=== PATIENT | female | born 1995 | race Caucasian/White ===

== ENCOUNTER → 2018-01-27 09:05 | Outpatient (CLI) | payer BC, SELFPAY ==
[2018-01-27 10:38] LABS: Basophils % 0.2 % (0.1-2.0); Eosinophils # 0.1 K/mm3 (0.0-0.4); Eosinophils % 0.8 % (0.1-12.0); Hematocrit 35.9 % (37.0-47.0); Hemoglobin 11.7 g/dL (12.2-16.2); Lymphocytes # 2.2 K/mm3 (0.7-4.5); Lymphocytes % 24.1 K/mm3 (10-50); Mean Corpuscular HGB Conc 32.4 g/dL (31.8-35.4); Mean Corpuscular Hemoglobin 29.6 pg (27.0-31.2); Mean Corpuscular Volume 91.1 fl (81-99); Mean Platelet Volume 7.2 fl (7.4-10.4); Monocytes # 0.4 K/mm3 (0.1-1.0); Monocytes % 4.2 % (1.7-9.3); Neutrophils # 6.6 K/mm3 (1.8-7.8); Neutrophils % 70.8 % (37.0-80.0); Platelet Count 282 K/mm3 (142-424); Red Blood Count 3.94 M/mm3 (4.20-5.40); Red Cell Distribution Width 12.9 % (11.5-17.5); White Blood Count 9.3 K/mm3 (4.8-10.8)
[2018-01-28 08:31] LABS: HIV Screen 4th Generation wRfx Non Reactive (Non Reactive)
[2018-01-29 06:03] LABS: Rapid Plasma Reagin Ab Titer Non Reactive (NonRea<1:1)
[2018-01-29 06:04] LABS: Hepatitis B Surface Antigen Negative (Negative); Hepatitis C Antibody 0.1 s/co ratio (0.0-0.9); Rubella Antibodies, IgG 2.82 index (Immune >0.99)
== END ==
PROVIDERS: Family Provider Family Medicine; PCP Psychiatry & Neurology Sleep Medicine; Visit Provider Nurse Practitioner Obstetrics & Gynecology
DX: Z34.90 Encounter for supervision of normal pregnancy, unspecified, unspecified trimester (principal); Z3A.11 11 weeks gestation of pregnancy
CPT/HCPCS: 36415; 85025; 86592; 86703; 86762; 86850; 87340; 87380; G0432

== ENCOUNTER → 2018-02-04 14:01 | Outpatient (CLI) | payer BC, SELFPAY ==
--- NOTE | 2018-02-04 14:06 | US_ITS ---
US OB transvaginal: INDICATION: ITS.REASON: US OB TV for DATES ORDERING PHYSICIAN: Terrell Main MD PATIENT AGE: 22 years TECHNIQUE: ultrasound transvaginal scanning. COMPARISON: No previous relevant studies. FINDINGS: Single viable intrauterine gestation. Cephalic position. Placenta: Posterior and fundal placenta grade 1. There is a normal amount of fluid. The cervix appears satisfactory. Closed and measuring 2.23 centimeters in length. Complete survey performed and was unremarkable on the submitted images as in PACS. No discrete anomalies identified on survey imaging by technologist. Active fetus. The crown-rump length measures 6.84 cm equaling 13 weeks 1 day Maternal adnexa: No significant findings. Measurements: Average ultrasound age 13 weeks 2 days. Gestational Age 12 weeks 5 days. Estimated due date by ultrasound age 108/10/2018. Estimated weight 69 gr +/- 10 grams grams. BPD = 2.16 cm equaling 13 weeks 4 days OFD = 2.68 cm HC = 7.65 centers equaling 13 weeks and 2 days AC = 6.38 cm equaling 13 weeks 1 day FL = 1.00 cm equaling 13 weeks 0 days Heart Rate = 141 bpm . IMPRESSION: Viable cephalic fetus, consider follow-up study in around 20 weeks for better anatomical evaluation
== END ==
PROVIDERS: Family Provider Family Medicine; PCP Psychiatry & Neurology Sleep Medicine; Visit Provider Nurse Practitioner Obstetrics & Gynecology
DX: O26.841 Uterine size-date discrepancy, first trimester (principal)
CPT/HCPCS: 76830

== ENCOUNTER → 2018-03-24 14:12 | Outpatient (CLI) | payer BC, SELFPAY ==
--- NOTE | 2018-03-24 14:20 | US_ITS ---
US OB /maternal detail: INDICATION: ITS.REASON: US OB Complete ORDERING PHYSICIAN: Terrell Main MD PATIENT AGE: 22 years TECHNIQUE: ultrasound transabdominal scanning. COMPARISON: No previous relevant studies. FINDINGS: Single viable intrauterine gestation. Breech position. Placenta: Posterior Lat Wrap placenta grade . There is average amount fluid. The cervix appears satisfactory. Closed and measuring 3 cm in length. Complete survey performed and was unremarkable on the submitted images as in PACS. No discrete anomalies identified on survey imaging by technologist. Active fetus. Three-vessel cord with satisfactory umbilical cord insertion. 4- chamber heart noted. Survey of brain & ventricles. Face and neck survey unremarkable. Diaphragm and chest views unremarkable. Abdomen: Both kidneys noted and unremarkable. Stomach noted and satisfactory. Spine: Survey of the spine satisfactory with no anomalies identified nor imaged. Both arms and legs noted. Amniotic Fluid: Adequate. Maternal adnexa: No significant findings. Measurements: Average ultrasound age 19w4d. Gestational Age 20w1d. Estimated due date by ultrasound age 0108/14/2018. Estimated weight 305 grams. BPD = 19w5d OFD = 19w5d HC = 19w0d AC = 20w1d FL = 19w3d Growth Percentile= 21% Heart Rate = 161 Cerebellum = 20w2d Humerus = 19w6d HC/AC is 1.08(1.09-1.26). CI is 80% (70-86%). FL/BPD is 66%. FL/AC is 20%. IMPRESSION: There is a single live fetus in breech presentation. No obvious anomalies. Average ultrasound age is 19 weeks 4 days. Please see above for detail
== END ==
PROVIDERS: Family Provider Family Medicine; PCP Psychiatry & Neurology Sleep Medicine; Visit Provider Nurse Practitioner Obstetrics & Gynecology
DX: Z36.0 Encounter for antenatal screening for chromosomal anomalies (principal)
CPT/HCPCS: 76811

== ENCOUNTER 2018-05-25 06:40 | Outpatient (CLI) | payer BC, SELFPAY ==
[2018-05-25 06:51] VITALS: BMI 29.4
[2018-05-25 07:13] LABS: Appearance,Urine SL CLOUDY (Clear); Bilirubin,Urine Negative (Negative); Blood, Urine Negative (Negative); Color,Urine YELLOW (Yellow); Glucose,Urine (UA) Negative (Negative); Ketones,Urine Negative (Negative); Leukocyte Esterase,Urine 2+ (Negative); Microscopic, Urine URINE MICROSCOPIC (MICROSCOPIC); Nitrate,Urine Negative (Negative); PH,Urine 6.5 (5.0-8.5); Protein,Urine Negative (Negative); Urobilinogen,Urine 0.2 EU/dl (0.2)
[2018-05-25 07:23] LABS: Amphetamine/Metha Screen,Urine Negative ng/mL (<1000); Barbiturates Screen,Urine Negative ng/mL (<200); Benzodiazepines Screen,Urine Negative ng/mL (<200); Cannabinoid Screen,Urine Negative ng/mL (<50); Cocaine Screen,Urine Negative ng/mL (<300); Methadone Screen,Urine Negative ng/mL (<300); Opiate Screen,Urine Negative ng/mL (<300); Phencyclidine Screen,Urine Negative ng/mL (<25)
[2018-05-25 07:30] VITALS: BP 100/54; PULSE 86; RESP 20; TEMP 36.6; O2SAT 100; BMI 29.4
[2018-05-25 07:33] LABS: Bacteria,Urine 2+ /lpf; RBC,Urine Occasional #/hpf (0-3); Squamous Epithelial Cell,Urine 20-50 #/hpf (0-5)
--- NOTE | 2018-05-25 09:26 | P.PN_ITS ---
Internal Medicine - PN: Subj *Date: 05/25/18 *Time: 09:25 Interval history: She is a 22-year-old 1 para 0 at 32 weeks gestational age. She complains of having lower back pain and irregular contractions. On arrival she was having irregular contractions and was quite uncomfortable. Her cervix was long and closed. Exam Vital signs and Labs for Last 24 Hours: Laboratory Results - last 24 hr 05/25/18 06:50: Urine Color Yellow, Urine Appearance Sl cloudy, Urine pH 6.5, Ur Specific [place] 1.020, Urine Protein Negative, Urine Glucose (UA) Negative, Urine Ketones Negative, Urine Blood Negative, Urine Nitrate Negative, Urine Bilirubin Negative, Urine Urobilinogen 0.2, Ur Leukocyte Esterase 2+ A, Urine RBC Occasional, Urine WBC 5-10, Ur Squamous Epith Cells 20-50, Urine Bacteria 2+ 05/25/18 06:50: Urine Opiates Screen Negative, Urine Methadone Screen Negative, Ur Barbituates Screen Negative, Ur Phencyclidine Scrn Negative, Ur Amphetamines Screen Negative, U Benzodiazepines Scrn Negative, Urine Cocaine Screen Negative, U Marijuana (THC) Screen Negative I & O for Last 24 hours: Intake & Output 05/22/18 05/23/18 05/24/18 05/25/18 12:59 12:59 11:59 11:59 Weight 177 lb - Constitutional no acute distress Assessment and Plan (1) False labor before 37 completed weeks of gestation Current visit: Yes Status: Acute Category: Medical Code(s): O47.00 - False labor before 37 completed weeks of gestation, unspecified trimester - Assessment and plan all Dx Assessment and Plan for all problems:: Gave her a bolus of fluid as well as 1 dose of Brethine. This stopped her contractions. She has received 1 dose of Celestone and will return tomorrow for her second dose of Celestone. She will return if she has any further episodes of contractions. Her cervix has remained long and closed. Nonstress test is reactive.
== END 2018-05-25 09:30 | disposition home or self-care (01) ==
LOC: OBOUT 06:43 → OB 06:45
PROVIDERS: PCP Family Medicine; Referring Provider Nurse Practitioner Obstetrics & Gynecology; Visit Provider Nurse Practitioner Obstetrics & Gynecology
DX: O26.893 Other specified pregnancy related conditions, third trimester (principal); Z3A.29 29 weeks gestation of pregnancy; M54.5 Low back pain; R10.9 Unspecified abdominal pain
CPT/HCPCS: 59025; 80305; 81001; 87086; 96360; 96372

== ENCOUNTER 2018-05-26 08:03 | Outpatient (CLI) | payer BC, SELFPAY ==
[2018-05-26 08:13] VITALS: BP 118/54; PULSE 72; RESP 16; TEMP 36.5; O2SAT 98; BMI 29.2
== END 2018-05-26 08:30 | disposition home or self-care (01) ==
LOC: OBOUT 08:04 → OB 08:06
PROVIDERS: PCP Nurse Practitioner Obstetrics & Gynecology; Visit Provider Nurse Practitioner Obstetrics & Gynecology
DX: O26.893 Other specified pregnancy related conditions, third trimester (principal); Z3A.29 29 weeks gestation of pregnancy; M54.5 Low back pain; R10.9 Unspecified abdominal pain
CPT/HCPCS: 96372

== ENCOUNTER → 2018-07-08 21:46 | Outpatient (CLI) | payer BC, SELFPAY | PROVIDERS: Visit Provider Nurse Practitioner Obstetrics & Gynecology | DX: Z34.90 Encounter for supervision of normal pregnancy, unspecified, unspecified trimester (principal) | CPT/HCPCS: 86403 ==

== ENCOUNTER → 2018-07-16 13:00 | Outpatient (CLI) | payer BC, SELFPAY ==
--- NOTE | 2018-07-16 13:16 | US_ITS ---
US OB BPP w/Fet-Mat S/D: INDICATION: ITS.REASON: US OB BPP Growth- SGA ORDERING PHYSICIAN: Terrell Main MD PATIENT AGE: 22 years TECHNIQUE: ultrasound transabdominal scanning. COMPARISON: March 24, 2018 at which time fetus measured average ultrasound age 19 weeks 4 days FINDINGS: Single viable intrauterine gestation. Cephalic position Currently. Placenta: Placenta wraps on the left.. Modest but adequate amount... The cervix appears adequately. Closed, measuring 3.54 cm in length. Abbreviated survey performed and was unremarkable on the submitted images as in PACS. No discrete anomalies identified on survey imaging by technologist. Active fetus.Three-vessel cord with satisfactory umbilical cord insertion. Limited Survey of brain & ventricles. In posterior fossa unremarkable Limited Face and neck survey unremarkable. Nasion intact Diaphragm and chest views unremarkable.4- chamber heart imaged.. Abdomen: Both kidneys noted and unremarkable. Stomach noted and satisfactory. Limited Survey of the spine satisfactory with no anomalies identified nor imaged. Both arms and legs noted.Amniotic Fluid: Adequate. . Measurements: Average ultrasound age 35 weeks 4 days. Gestational Age 36 weeks 3 days based on LMP 11/03/2017. Estimated due date by ultrasound age 108/16/2018. Estimated weight 2774 grams. +/- 405g . growth Percentile 36%. BPD = 35 weeks 2 days OFD = 35 weeks 2 days HC = 34 weeks 6 days AC = 36 weeks 3 days FL = 35 weeks 3 days Heart Rate = 143 BPM RAQUEL = 11.57.. Visually there is modest but adequate fluid Largest pocket 3.5 cm at right upper quadrant SD ratio = 2.9 with resistive index 0.66 ] BIOPHYSICAL PROFILE: 6 of 8 points 2+ scoring for: Tone, Movement, Amniotic Fluid volume . However no Breathing was observed even with stimulation maneuvers thus this category scored as 0 HC/AC = 0.96.(0.93-1.11.) CI = 80%.(70-86%). FL/BPD is 79%. WNL (71-87%) FL/AC is 21%. WNL ====IMPRESSION: 35 weeks 4 days average ultrasound age Cephalic position. Placenta wraps to the left . Anatomical survey of unremarkable & WNL . RAQUEL 11.57; SD ratio 2.9. Biophysical profile 6 of 8 points . (No Breathing observed during the 30 minute period, thus this category scored as 0.)
== END ==
PROVIDERS: PCP Family Medicine; Visit Provider Nurse Practitioner Obstetrics & Gynecology
DX: O36.5930 Maternal care for other known or suspected poor fetal growth, third trimester, not applicable or unspecified (principal); Z3A.35 35 weeks gestation of pregnancy
CPT/HCPCS: 76811; 76819; 76820

== ENCOUNTER 2018-07-16 21:40 | Outpatient (CLI) | payer BC, SELFPAY ==
[2018-07-16 21:53] VITALS: BMI 28.0
[2018-07-16 22:25] LABS: Microscopic, Urine URINE MICROSCOPIC (MICROSCOPIC)
[2018-07-16 22:31] LABS: Appearance,Urine CLEAR (Clear); Blood, Urine Negative (Negative); Color,Urine YELLOW (Yellow); Glucose,Urine (UA) Negative (Negative); Ketones,Urine TRACE (Negative); Leukocyte Esterase,Urine Negative (Negative); Nitrate,Urine Negative (Negative); PH,Urine 6.5 (5.0-8.5); Protein,Urine TRACE (Negative)
[2018-07-16 22:39] LABS: Bilirubin,Urine Negative (Negative)
[2018-07-16 22:41] LABS: Fetal Membrane Rupture (Rapid) Negative (Negative)
[2018-07-16 22:48] LABS: Bacteria,Urine Trace /lpf
[2018-07-16 22:56] VITALS: BP 112/56; PULSE 68; RESP 18; TEMP 36.8; O2SAT 98; BMI 28.0
== END 2018-07-17 00:35 | disposition home or self-care (01) ==
LOC: OBOUT 21:42 → OB 21:43
PROVIDERS: PCP Family Medicine; Visit Provider Obstetrics & Gynecology
DX: O26.893 Other specified pregnancy related conditions, third trimester (principal); Z3A.36 36 weeks gestation of pregnancy
CPT/HCPCS: 59025; 81001; 84112; 96360

== ENCOUNTER → 2018-08-11 09:58 | Outpatient (CLI) | payer BC, OTHER, SELFPAY ==
--- NOTE | 2018-08-11 10:16 | US_ITS ---
US OB BPP w/Fet-Mat S/D: INDICATION: ITS.REASON: US OB- Post Dates ORDERING PHYSICIAN: Terrell Main MD PATIENT AGE: 22 years TECHNIQUE: ultrasound transabdominal scanning. COMPARISON: No previous relevant studies. FINDINGS: Single viable intrauterine gestation. Cephalic position. Placenta: Anterior left lateral and posterior placenta grade 2. There is average amount fluid. The cervix appears satisfactory. Closed and measuring 3 cm in length. Measurements: Average ultrasound age 37w4d. Gestational Age 40w1d. Estimated due date by ultrasound age 0208/28/2018. Estimated weight 3275 grams. BPD = 38w0d OFD = 38w5d HC = 37w1d AC = 38w2d FL = 36w5d Growth Percentile= not calculated due to post dates Heart Rate = 126 HC/AC is 0.95 (0.87-1.06). CI is 82%. FL/BPD is 77%. FL/AC is 21% (20-24%).. Umbilical artery evaluation shows an SD ratio of 2.9 and a resistive index of 0.65 both within normal limits. Biophysical profile is 8 of 8 Amniotic fluid index is 7 cm, slightly low IMPRESSION: There is a live IUP with an average ultrasound age of 37 weeks and 4 days with an estimated weight of 3275 g. All parameters correlate. Unremarkable umbilical artery Doppler evaluation. The placenta is anterior left lateral and posterior and grade 2 Biophysical profile 8 of 8. Slightly low amniotic fluid index of 7 cm
== END ==
PROVIDERS: PCP Nurse Practitioner Obstetrics & Gynecology; Visit Provider Nurse Practitioner Obstetrics & Gynecology
DX: O48.0 Post-term pregnancy (principal)
CPT/HCPCS: 76811; 76819; 76820

== ENCOUNTER 2018-08-12 01:22 | Inpatient (IN) ==
[2018-08-12 05:53] LABS: Basophils % 0.2 % (0.1-2.0); Eosinophils % 0.4 % (0.1-12.0); Hematocrit 35.8 % (37.0-47.0); Lymphocytes # 2.3 K/mm3 (0.7-4.5); Lymphocytes % 22.1 % (10-50); Mean Corpuscular HGB Conc 33.5 g/dL (31.8-35.4); Mean Corpuscular Hemoglobin 30.4 pg (27.0-31.2); Mean Corpuscular Volume 90.6 fl (81-99); Mean Platelet Volume 7.5 fl (7.4-10.4); Monocytes # 0.4 K/mm3 (0.1-1.0); Monocytes % 4.1 % (1.7-9.3); Neutrophils # 7.6 K/mm3 (1.8-7.8); Neutrophils % 73.2 % (37.0-80.0); Platelet Count 274 K/mm3 (142-424); Red Blood Count 3.95 M/mm3 (4.20-5.40); Red Cell Distribution Width 14.7 % (11.5-17.5); White Blood Count 10.4 K/mm3 (4.8-10.8)
--- NOTE | 2018-08-12 08:18 | History & Physical Report ---
OB - H&P: HPI Antepartum - History of Present Illness Chief complaint: Post date History of present illness: She is a 22-year-old 1 para 0 at 40 and 2 weeks gestational age. As a result of that we are electing to induce her labor postterm. - History of Present Criteria for establishing EDC:: LMP confirmed by 1st trimester US care: good care Ultrasounds: normal 1st trimester US, normal mid trimester US Obstetrical complications: none Medical complications: none [facility] History I have reviewed the patient's past medical history: Yes Medical History: Denies:: Anxiety, Asthma, Depression, Diabetes Mellitus Type 1, Hyperlipidemia, Hypertension, MRSA, Seizures Have you ever received a pneumonia vaccine?: No Have you received a flu vaccine this season?: No Other Surgeries: No: Amputation: No Fractures: No - *Social History Smoking Status: Never smoker Alcohol Intake: never Substance Use Type: denies use Occupational Status: other, unemployed - Psychiatric History Pschychiatric History:: Denies:: Anxiety, Depression *Family Hx:: No significant family history Para: 0 Review of Systems - Review of Systems Review of systems:: pertinent systems reviewed and negative unless documented below Meds Home Medications Medication Instructions Recorded Confirmed Type 1 tab PO QHS 01/27/18 08/11/18 History vitamin,calcium,oojjtriv-pghr-gcyhn acid tablet RX: Ferrous Sulfate [Ferosul 220 mg PO DAILY 07/16/18 08/11/18 History 220mg/5ml Elixir] Allergies Allergy/AdvReac Type Severity Reaction Status Date / Time No Known Allergies Allergy Verified 08/11/18 10:52 OB - H&P: Exam - Physical Exam Vital signs: Temp Pulse Resp BP Pulse Ox 98.3 F 105 H 16 129/77 93 L 08/12/18 05:54 08/12/18 05:54 08/12/18 05:54 08/12/18 05:54 08/12/18 05:54 - Constitutional no acute distress - Routine HEENT Exam Head: Present: normocephalic Eye: Present: EOMI, PERRL ENT: Present: mucous membranes moist - Routine Neck Exam Present: supple, full ROM - Routine Respiratory Exam Absent: accessory muscle use (good air entry bilaterally), respiratory distress, wheezes, crackles - Routine Cardiovascular Exam Present: RRR. Absent: murmur - Routine Abdominal Exam Present: soft, normoactive bowel sounds. Absent: tenderness, distended, guarding - Routine Rectal Exam Patient deferred: visual exam, digital exam - Routine Exam Patient deferred: external exam, groin exam, perineal exam - Routine Extremities Exam Present: full ROM. Absent: cyanosis, edema - Routine Skin Exam Present: intact. Absent: cyanosis - Routine Neurological Exam Present: alert, oriented X3 - Routine Psychiatric Exam Present: normal affect OB - Results - Labs Labs: Short CBC 08/12/18 Range/Units 05:45 WBC 10.4 (4.8-10.8) K/mm3 Hgb 12.0 L (12.2-16.2) g/dL Hct 35.8 L (37.0-47.0) % Plt Count 274 (142-424) K/mm3 OB - A/P Antepartum (1) Post term over 40 weeks Current visit: Yes Status: Acute (2) Normal delivery at term Current visit: Yes Status: Acute - Additional Plan Planning to breastfeed?: Yes Plan: induction Additional Information:: Her cervix is 2 cm 75% Station -2. We have ruptured her membranes. Her nonstress test is reactive. She is having contractions every 2 minutes. We will expect a vaginal delivery.
--- NOTE | 2018-08-12 10:31 | Progress Note ---
Labor Note - Subjective: Date: 08/12/18 Time: 10:30 regular contraction - Objective: NST:: Reactive Contractions:: every 2-3 minutes Cervical Dilation:: 2 Effacement:: 50% Station: -2 Membranes: artificially ruptured - Fetus: Monitoring?: Yes monitoring type:: External - Assessment: Labor progressing?: Yes Cephalopelvic disproportion?: No Patient Problems: All Active Problems False labor before 37 completed weeks of gestation (Acute) Post term over 40 weeks (Acute) Normal delivery at term (Acute) (Acute) - Plan: Anesthesia for epidural?: No Continue to labor down?: Yes Plan for ?: No Continue to monitor?: Yes Start pushing?: No
--- NOTE | 2018-08-12 13:50 | Progress Note ---
Labor Note - Subjective: Date: 08/12/18 Time: 13:49 regular contraction - Objective: NST:: Reactive Contractions:: every 2-3 minutes Cervical Dilation:: 3 Effacement:: 75% Station: -3 Membranes: ruptured - Fetus: Monitoring?: Yes monitoring type:: External - Assessment: Labor progressing?: Yes Patient Problems: All Active Problems False labor before 37 completed weeks of gestation (Acute) Post term over 40 weeks (Acute) Normal delivery at term (Acute) (Acute) - Plan: Anesthesia for epidural?: No Continue to labor down?: Yes Plan for ?: No Continue to monitor?: Yes Start pushing?: No Comment:: She has gone from 2-3 cm and her cervix has thinned out somewhat. The baby's head is still quite high. We will see how she does over the next few hours.
--- NOTE | 2018-08-12 17:05 | Progress Note ---
Labor Note - Subjective: Date: 08/12/18 Time: 17:04 regular contraction - Objective: NST:: Reactive Contractions:: every 2-3 minutes Cervical Dilation:: 2-3 Effacement:: 50% Station: -3 Membranes: artificially ruptured - Fetus: Monitoring?: Yes monitoring type:: External - Assessment: Labor progressing?: No Cephalopelvic disproportion?: Yes Patient Problems: All Active Problems False labor before 37 completed weeks of gestation (Acute) Post term over 40 weeks (Acute) Normal delivery at term (Acute) (Acute) - Plan: Anesthesia for epidural?: No Continue to labor down?: No Plan for ?: Yes Continue to monitor?: Yes Comment:: She really has not progressed beyond 2-3 cm. She does not have an epidural. Baby's head is still high. We will plan a .
--- NOTE | 2018-08-12 18:09 | Progress Note ---
Labor Note - Subjective: Date: 08/12/18 Time: 18:08 regular contraction - Objective: NST:: Reactive Contractions:: every 2-3 minutes Cervical Dilation:: 2-3 Effacement:: 50% Station: -3 Membranes: artificially ruptured - Fetus: Monitoring?: Yes monitoring type:: External - Assessment: Labor progressing?: No Cephalopelvic disproportion?: Yes Patient Problems: All Active Problems False labor before 37 completed weeks of gestation (Acute) Post term over 40 weeks (Acute) Normal delivery at term (Acute) (Acute) - Plan: Anesthesia for epidural?: No Continue to labor down?: No Plan for ?: Yes Continue to monitor?: Yes Start pushing?: No Comment:: She really has not progressed beyond 2-3 cm. The baby's head is still quite high. After having discussed the risks and benefits we have elected to go ahead with a primary lower segment transverse section. We discussed the risks of surgery that includes bleeding, infection, injury to the bowel and bladder. We discussed the risk of DVT. All questions were answered and consents were signed.
--- NOTE | 2018-08-12 20:28 | Operative Note ---
Date of procedure: 08/12/18 Pre-op Diagnosis:: Post term , pelvic disproportion Post-op Diagnosis:: Post term , pelvic disproportion, uterine atony Procedure performed:: Primary lower segment transverse section, B-Healy suture Surgeon:: Terrell Main MD Exercise Science Instructor(s):: Karen Rubio MOTOR LODGE CLERK:: Aftab Campbell Anesthesia: spinal Estimated blood loss (mL): 1,000 Clinical Note:: She is a 22-year-old 1 para 0 at 40+2 weeks gestational age. She was postterm and as result of that was brought in for induction of labor. She was on IV oxygen and had her membranes ruptured. She really failed to progress beyond 2 to centimeters after 12 hours of oxytocin. As result of that we elected to perform a primary ligament transverse section. The risks and benefits of surgery were discussed patient and her . Operative findings:: She delivered a liveborn female child at 7:54 PM in the evening of August 12, 2018. The baby Apgars of 9 at 1 minute and 10 at 5 minutes. PH is pending. Ovaries and tubes appeared normal. The uterus is quite boggy after we delivered the baby and placenta. As result of that we elected to place a B-Healy suture Operative note:: She was taken to the operating room where spinal anesthesia was found be adequate. She was prepped and draped in normal sterile fashion in the supine position with a leftward tilt. A Fernandes catheter was in the bladder. A Pfannenstiel skin incision was made with knife then carried through to the underlying layer of fascia with cautery. The fascia was opened in the midline with cautery and extended laterally using Sen scissors. Deerton clamps were appli ed to the superior aspect of the fascial incision which was tented up and the underlying rectus muscles dissected off using cautery. The Deerton clamps were then applied to the inferior aspect of the fascial incision which in a similar fashion was tented up and the underlying rectus muscles dissected off using cautery. The rectus muscles were then in the midline, the peritoneum identified, and entered sharply with Metzenbaum scissors. This incision was then extended superiorly and inferiorly with cautery. We had good visualization of the bladder inferiorly. The bladder peritoneum was then opened in the midline and extended laterally using Metzenbaum scissors. A bladder flap was created digitally. Transverse incision was made through the uterine muscle to the amnion. This incision was then extended laterally using fingers traction. The amnion was entered sharply with knife. There was clear amniotic fluid. The 's head was then delivered atraumatically. A loose nuchal cord was then reduced. This was followed by the anterior shoulder and the rest of the 's body atraumatically. The oropharynx and nasopharynx were bulb suctioned. The was then handed off to Dr. Mensah who assigned Apgars of 9 at 1 minute and 10 at 5 minutes. We then obtained cord blood as well as cord pH. Using gentle traction on the cord and countertraction on the fundus I was able to easily deliver the placenta intact. It had a normal three-vessel cord. The uterus was then cleared of clots and debris . The uterine incision was then closed using running 0 Vicryl suture in a locked fashion. A second layer of the same suture was used to imbricate the first layer. The bladder peritoneum was then closed using running 2-0 Vicryl suture in a locked fashion. The gutters and cul-de-sac were then cleared of clots and debris . Once again hemostasis was assured. The uterus was quite so I elected to place a B-Healy suture. Starting anteriorly I took a large bite of muscle and went over the top of the uterus and took 2 bites posteriorly. I then brought the suture anteriorly and took a bite. The suture cinched down being careful to avoid the tubes bilaterally. Once again we assured hemostasis. The peritoneum was grasped with Felisa clamps and closed using running 2-0 Vicryl suture. The rectus muscles were then reapproximated using running 0 Vicryl suture. The fascia was closed using running #1 Vicryl suture. The subcutaneous tissues were then irrigated with warm water followed by closure Carlos's fascia using running 2-0 Monocryl suture. The skin was closed with jamie. I then cleaned the skin with Hibiclens. Sterile dressings were applied. She tolerated the procedure well and was taken to the recovery room in excellent condition. All sponges minute and needle counts were correct. Estimate a blood loss was approximately 1000 mL. Condition: stable Disposition: PACU Specimens:: Products of conception Complications:: None
--- NOTE | 2018-08-12 20:33 | Progress Note ---
[facility] Anesthesia Checklist - Patient Identification Patient Identification: Arm Band - Structural Data Admitted From: Inpatient Planned Operative Procedure/s: primary c/s Consent for Planned Operative Procedure(s) Verified: Yes Verified Documents: Surgical Consent, History and Physical - NPO Status Verified Time NPO: 00:00 - Additional verifications Anesthesia Reactions: No - Airway Assessment C-Spine Mobility Assessed: Yes (mp2) TMJ Mobility Assessed: Yes Dentition: Good Dentition - Neurological Assessment Level of Consciousness: Awake, Alert - Anesthesia Plan Anesthesia Risk discussed: Yes Anesthesia Plan: Verified ASA Class: II Anesthesia Type: Spinal [facility] History I have reviewed the patient's past medical history: Yes Medical History: Denies:: Anxiety, Asthma, Depression, Diabetes Mellitus Type 1, Hyperlipid emia, Hypertension, MRSA, Seizures Have you ever received a pneumonia vaccine?: No Have you received a flu vaccine this season?: No Other Surgeries: No: Amputation: No Fractures: No - *Social History Smoking Status: Never smoker Alcohol Intake: never Substance Use Type: denies use Occupational Status: other, unemployed - Psychiatric History Pschychiatric History:: Denies:: Anxiety, Depression *Family Hx:: No significant family history Para: 0
--- NOTE | 2018-08-12 20:34 | Progress Note ---
[facility] Anesthesia Record Part II Discharge Time: 21:00 Destination: Obstetric PACU nurse assessment reviewed?: Yes Patient Condition:: Good Anesthesia Complications:: None Swallowing reflex intact?: Yes Cyanosis?: No
--- NOTE | 2018-08-12 20:34 | Progress Note ---
[facility] Anesthesia Record Part I Intake, IV Amount: 2,000 Estimated blood loss (mL): 1,000 Urine output (mL): 100 Blood Pressure: 119/62 SaO2: 100 Pulse Rate: 82 Respiratory Rate: 16 Temperature: 97.6 F Patient is:: Drowsy, Stable Stable to PACU at:: 20:30
[2018-08-13 06:21] LABS: Basophils % 0.2 % (0.1-2.0); Eosinophils % 0.1 % (0.1-12.0); Lymphocytes # 1.8 K/mm3 (0.7-4.5); Lymphocytes % 13.8 % (10-50); Mean Corpuscular HGB Conc 31.7 g/dL (31.8-35.4); Mean Corpuscular Volume 94.6 fl (81-99); Mean Platelet Volume 8.2 fl (7.4-10.4); Monocytes # 0.8 K/mm3 (0.1-1.0); Monocytes % 6.3 % (1.7-9.3); Neutrophils # 10.1 K/mm3 (1.8-7.8); Neutrophils % 79.6 % (37.0-80.0); Platelet Count 222 K/mm3 (142-424); Red Cell Distribution Width 14.7 % (11.5-17.5); White Blood Count 12.7 K/mm3 (4.8-10.8)
[2018-08-13 06:25] LABS: Hematocrit 22.7 % (37.0-47.0); Hemoglobin 7.2 g/dL (12.2-16.2)
[2018-08-13 12:50] LABS: Hemoglobin 7.3 g/dL (12.2-16.2)
[2018-08-13 12:55] LABS: Hematocrit 23.4 % (37.0-47.0)
[2018-08-13 16:42] LABS: Hematocrit 27.4 % (37.0-47.0)
[2018-08-14 07:02] LABS: Hematocrit 26.6 % (37.0-47.0); Hemoglobin 8.6 g/dL (12.2-16.2)
--- NOTE | 2018-08-14 08:41 | Progress Note ---
Internal Medicine - PN: Subj *Date: 08/14/18 *Time: 08:40 Interval history: She is doing well this morning. She is eating and drinking and ambulating. She is bottlefeeding. Her hemoglobin this morning is 8.6. She did receive 2 units of blood yesterday. She feels well. She denies any shortness of breath, chest pain or dizziness. Exam Vital signs and Labs for Last 24 Hours: Temp Pulse Resp BP Pulse Ox 97.8 F 75 20 110/57 L 99 08/13/18 16:25 08/13/18 16:25 08/13/18 16:25 08/13/18 16:25 08/13/18 16:25 Laboratory Results - last 24 hr 08/12/18 05:45: Blood Type AB Positive, Antibody Screen Negative, Crossmatch (AHG) See Detail 08/13/18 11:45: Hgb 7.3 L*, Hct 23.4 L* 08/13/18 16:30: Hgb 9.0 L D, Hct 27.4 L 08/14/18 05:50: Hgb 8.6 L, Hct 26.6 L I & O for Last 24 hours: Intake & Output 08/11/18 08/12/18 08/13/18 08/14/18 11:59 11:59 11:59 11:59 Intake Total 2280 / 2280 280 / 280 Output Total 325 / 325 Balance 1954 / 1954 280 / 280 Weight 179 lb - Constitutional no acute distress Assessment and Plan (1) Post term over 40 weeks Current visit: Yes Status: Acute Category: Medical Code(s): O48.0 - Post- term (2) Normal delivery at term Current visit: Yes Status: Acute Category: Medical Code(s): O80 - Encounter for full-term uncomplicated delivery (3) Anemia Current visit: Yes Status: Acute Qualifiers: Other causes of anemia: acute posthemorrhagic Category: Surgical Code(s): D64.9 - Anemia, unspecified
--- NOTE | 2018-08-14 09:54 | Pharmacy Consult Notes ---
[facility] Pharmacy VTE Monitoring - Patient Demographics Admission date: 08/12/18 Report Date: 08/14/18 Time: 09:54 Allergies/Adverse Reactions: Patient Allergies No Known Allergies Allergy (Verified 08/11/18 10:52) Height: 1.68 m Weight: 81.193 kg Patient Problems: Current Active Problems Post term over 40 weeks (Acute) Normal delivery at term (Acute) Anemia (Acute) - VTE Risk Labs: VTE Related Lab Results Hgb 8.6 g/dL (12.2-16.2) L 08/14/18 05:50 Hct 26.6 % (37.0-47.0) L 08/14/18 05:50 Plt Count 222 K/mm3 (142-424) 08/13/18 06:10 - Prophylaxis VTE Prophylaxis Ordered?: Yes Types of VTE Prophylaxis: IPCS Thigh High Location of Applied Device: Bilateral Lower Extremeties - VTE Diagnosis Confirmed Treatment or plan recommended: Continue Current Treatment
[2018-08-14 11:28] VITALS: BP 111/56
[2018-08-14 21:48] LABS: Hematocrit 25.8 % (37.0-47.0)
[2018-08-15 06:30] LABS: Hematocrit 27.7 % (37.0-47.0); Hemoglobin 8.5 g/dL (12.2-16.2)
--- NOTE | 2018-08-15 14:12 | Discharge Summary ---
General - General Admission date:: 08/12/18 Discharge date: 08/15/18 HPI HPI: POD #3 s/p primary LTCS Postop course complicated by acute blood loss anemia and transfusion of 2u PRBCs Asymptomatic since that time Pulse rate has been in 50-60s since delivery, but all other vitals have been normal post-transfusion hgb stable at 8.0 Desires discharge home today S/P nursing home social worker consult due to concerns over maternal bonding with infant Cleared for discharge and SS planning to f/u with the family after discharge Hospital Course Hospital Course: as per HPI documentation Rhogam Administration: Not Indicated Objective Vital signs: Temp Pulse Resp BP Pulse Ox 97.9 F 78 20 111/56 L 99 08/14/18 08:00 08/14/18 08:00 08/14/18 08:00 08/14/18 08:00 08/14/18 08:00 Narrative: CONSTITUTIONAL: no acute distress HEENT: mucous membranes moist PULMONARY: breathing unlabored without audible wheezes CV: no tachycardia or visible JVD; normal LE peripheral pulses ABD: soft, NT/ND, no guarding : fundus firm at/below umbilicus SKIN: incision well approximated with no drainage, erythema or induration EXT: 1+ edema LEs NEURO: alert/oriented, no altered mental status PSYCH: affect flat (unchanged from admission/hospital course) without visible anxiety/depression Results Labs on day of discharge: Labs from last 24 hours 08/15/18 08/14/18 06:20 21:41 Hgb 8.5 L 8.0 L Hct 27.7 L 25.8 L DS: Diagnosis - Discharge Diagnosis (1) Post term over 40 weeks Status: Acute (2) delivery delivered Status: Acute (3) Anemia Status: Acute (4) Acute blood loss anemia Status: Acute (5) Bradycardia Status: Acute Discharge Plan - Patient Discharge Instructions ACTIVITY: Limited activity DIET: regular diet Additional Instructions: NO HEAVY LIFTING, NO DRIVING WHILE TAKING PAIN MEDICINE AND NOTHING IN THE VAGINA FOR 6 WEEKS. Patient Instructions: How to Care for a Surgical Wound, Depression, Hemorrhage, DI for , DI for Postoperative Pain, [facility] Post Discharge Instructions - Follow up Plan Follow up with: Terrell Main MD [Staff Physician] - 08/25/18 2:15 pm Disposition: Home, Self-Alf Medications: Home Medications Medication Instructions Recorded Confirmed Type 1 tab PO HS 01/27/18 08/12/18 History vitamin,calcium,ecvyqkyl-tlog-zqaui acid tablet Ferrous Sulfate [Ferosul 220mg/5ml 220 mg PO DAILY 07/16/18 08/12/18 History Elixir] Ferrous Sulfate [Ferrous Sulfate 325 mg PO BID #60 tab 08/15/18 Rx 325mg Tablet] Ketorolac Tromethamine [Toradol 10 mg PO Q6H #30 tab 08/15/18 Rx 10mg tablet] Oxycodone HCl [OxyIR 5mg tablet] 10 mg PO Q4HP PRN #30 tab 08/15/18 Rx Prescriptions/Medication Reconciliation: New Oxycodone HCl [OxyIR 5mg tablet] 10 mg PO Q4HP PRN #30 tab PRN Reason: Moderate To Severe Pain Ketorolac Tromethamine [Toradol 10mg tablet] 10 mg PO Q6H #30 tab Continue vitamin,calcium,phruieea-gqto-jiyip acid tablet 1 tab PO HS Discontinued Ferrous Sulfate [Ferosul 220mg/5ml Elixir] 220 mg PO DAILY
== END 2018-08-15 15:40 | disposition home or self-care (01) | DRG 787 ==
LOC: OB 05:07
PROVIDERS: ADMIT Nurse Practitioner Obstetrics & Gynecology; ATTEND Nurse Practitioner Obstetrics & Gynecology
CPT/HCPCS: 36415; 59025; 82800; 85014; 85018; 85025; 86850; 93005; J0595; J2405; P9016

== ENCOUNTER 2021-05-04 11:55 | Emergency (ER) | payer OTHER, SELFPAY ==
[2021-05-04 12:00] VITALS: BP 121/68; PULSE 68; RESP 21; TEMP 36.8; O2SAT 98; BMI 32.5
--- NOTE | 2021-05-04 12:17 | HMH.EDUTC ---
[facility] [place] Disposition Clinical Impression: Ear pain Qualifiers: Laterality: bilateral Qualified Code(s): H92.03 - Otalgia, bilateral Disposition: Home, Self-Care Condition on Discharge: Good Instructions: DI for Ear Pain-Adult, Fluticasone Nasal Gaastra Additional Instructions: *Monitor Temp, Over the counter Motrin or Tylenol as directed/as needed Tylenol every 4 hours and Motrin every 6 hours (as long as your family doctor has told you that you can take it) for fever or pain. and straight to ER if unable to lower temp less than 101.0 after medication given *Warm salt water gargles may help to soothe the throat *Throat Lozenges *Warm fluids like tea with honey may help to soothe the throat *Sleep elevated *Humidifier/Vaporizer *Flonase 1 sprays in each nostril daily but be aware that it may take 2-3 days before you notice improvement Follow up IMMEDIATELY for new or worsening symptoms or no Noticeable improvement over the next 48-72 hours. 911 for difficulty breathing or swallowing Prescriptions: Fluticasone Propionate [Flonase 50mcg nasal spray 16gm] 1 spr NS DAILY #1 each Transmission Status: Pending to [facility] #[id number] Referrals: Provider,Referral, MD [Primary Care Provider] - As needed Time of Disposition: 12:21 Medical Decision Making - Juancarlos Inquiry Pt receiving controlled substance: No Juancarlos was queried for this patient: No Vital Signs: 05/04/21 12:00 Temperature 98.2 F Temperature Source Oral Pulse Rate [Right Brachial] 68 Respiratory Rate 21 Blood Pressure [Right Arm] 121/68 Blood Pressure Mean [Right Arm] 85 Blood Pressure Source [Right Arm] Automatic Cuff Blood Pressure Position [Right Arm] Sitting 02 Sat by Pulse Oximetry 98 Oxygen Delivery Method Room Air [facility] [place] HPI - General Stated complaint: ear pain Time Seen by Provider: 05/04/21 12:17 Mode of Arrival: Ambulatory Source of Information: Patient Limitations: No Limitations Description of Symptoms (Recalled from Triage Doc. by RN): PATIENT C/O BILATERAL EAR PAIN SINCE YESTERDAY HEENT Symptoms (Recalled from RN notes): Yes Resp Symptoms (Recalled from RN notes): No Skin Symptoms (Recalled from RN notes): No MS Symptoms (Recalled from RN notes): No Functional Status (Recalled from RN notes): WNL - History of Present Illness Provider Complaint: Patient states that she has been having bilateral ear pain since yesterday and was worried that she may have caught an ear infection off her daughter so she wanted to get checked - Related Data Previous Rx's Medication Instructions Recorded Fluticasone Propionate [Flonase 1 spr NS DAILY #1 each 05/04/21 50mcg nasal spray 16gm] Allergies Allergy/AdvReac Type Severity Reaction Status Date / Time No Known Allergies Allergy Verified 11/14/18 04:57 - Worker's Comp Is this a Worker's Comp case?: No [facility] History - Hepatitis A Screen Drug use history?: No High risk sexual behaviors?: No History of sexually transmitted infection?: No Currently employed?: No Childcare worker?: No Do you have indoor plumbing?: Yes Do you have electricity?: Yes Attestation statement:: This patient has been screened for Hepatitis A risk factors. I have reviewed the patient's past medical history: Yes Medical History: Denies:: Anxiety, Asthma, Cancer, Depression, Diabetes Mellitus Type 1, Diabetes Mellitus Type 2, Hyperlipidemia, Hypertension, Migraine, MRSA, Seizures Other Medical History: Denies: Anemia Other Surgeries: Yes: No Previous Surgery, Amputation: No Fractures: No - Social History Smoking Status: Never smoker Alcohol Intake: never Substance Use Type: denies use Occupational Status: unemployed Housing: house Household Members: family - Psychiatric History Pschychiatric History:: Denies:: Anxiety, Depression Family Hx:: No significant family history ROS Obtained: Yes All systems reviewed & no additional complaints, Yes Systems reviewed as appropriate &
[2021-05-04 12:29] VITALS: BP 121/68; PULSE 68; RESP 21; TEMP 36.8; O2SAT 98
== END 2021-05-04 12:33 | disposition home or self-care (01) ==
PROVIDERS: Emergency Provider Nurse Practitioner
DX: H92.03 Otalgia, bilateral (principal)
CPT/HCPCS: 99202; G0463

== ENCOUNTER 2021-08-25 18:44 | Emergency (ER) | payer OTHER, SELFPAY ==
[2021-08-25 18:50] VITALS: BP 122/69; PULSE 79; RESP 18; TEMP 37.2; O2SAT 98; BMI 35.8
--- NOTE | 2021-08-25 19:16 | HMH.EDUTC ---
[facility] [place] Disposition Clinical Impression: Otitis media Qualifiers: Otitis media type: suppurative Chronicity: acute Laterality: bilateral Recurrence: non-recurrent Spontaneous tympanic membrane rupture: without spontaneous rupture Qualified Code(s): H66.003 - Acute suppurative otitis media without spontaneous rupture of ear drum, bilateral Disposition: Home, Self-Care Condition on Discharge: Good Instructions: Middle Ear Infection Additional Instructions: Start antibiotic as soon as possible and be sure to take as ordered for full length of time even though he should start feeling better in 24-48 hours. Tylenol or Motrin as needed for pain or fever Encourage fluids, water, Gatorade, Powerade, Pedialyte if infant/toddler/child Warm compresses often helps when placed over ear Return immediately for new or worsening symptoms no noticeable improvement in 48-72 hours and in 10-14 days to ensure the ears are return to baseline. Follow-up with primary care Prescriptions: Amoxicillin [Amoxicillin 400MG/5ML Oral Susp.] 500 mg PO BID 10 Days #150 ml Prescription Printed Referrals: Jone Avalos MD [Primary Care Provider] - Time of Disposition: 19:24 Medical Decision Making - Juancarlos Inquiry Pt receiving controlled substance: No Vital Signs: 08/25/21 18:50 Temperature 98.9 F Temperature Source Oral Pulse Rate [Right Brachial] 79 Respiratory Rate 18 Blood Pressure [Right Arm] 122/69 Blood Pressure Mean [Right Arm] 86 Blood Pressure Source [Right Arm] Automatic Cuff Blood Pressure Position [Right Arm] Sitting 02 Sat by Pulse Oximetry 98 Oxygen Delivery Method Room Air [facility] [place] HPI - General Chief complaint: Urgent Treatment [facility] Stated complaint: ear pain both ears Time Seen by Provider: 08/25/21 19:21 Mode of Arrival: Ambulatory Source of Information: Patient Limitations: No Limitations Description of Symptoms (Recalled from Triage Doc. by RN): PATIENT C/O BILATERAL EAR PAIN THAT STARTED YESTERDAY HEENT Symptoms (Recalled from RN notes): Yes Resp Symptoms (Recalled from RN notes): No Skin Symptoms (Recalled from RN notes): No MS Symptoms (Recalled from RN notes): No Functional Status (Recalled from RN notes): WNL - History of Present Illness Provider Complaint: 26 yr old fmeale presnets for chana ear pain that started yesterday - Related Data Previous Rx's Medication Instructions Recorded Fluticasone Propionate [Flonase 1 spr NS DAILY #1 each 05/04/21 50mcg nasal spray 16gm] Amoxicillin [Amoxicillin 400MG/5ML 500 mg PO BID 10 Days #150 ml 08/25/21 Oral Susp.] Allergies Allergy/AdvReac Type Severity Reaction Status Date / Time No Known Allergies Allergy Verified 11/14/18 04:57 - Worker's Comp Is this a Worker's Comp case?: No H History - Hepatitis A Screen Drug use history?: No High risk sexual behaviors?: No History of sexually transmitted infection?: No Currently employed?: No Childcare worker?: No Do you have indoor plumbing?: Yes Do you have electricity?: Yes Attestation statement:: This patient has been screened for Hepatitis A risk factors. I have reviewed the patient's past medical history: Yes Medical History: Denies:: Anxiety, Asthma, Cancer, Depression, Diabetes Mellitus Type 1, Diabetes Mellitus Type 2, Hyperlipidemia, Hypertension, Migraine, MRSA, Seizures Other Medical History: Denies: Anemia Other Surgeries: Yes: No Previous Surgery, Amputation: No Fractures: No - Social History Smoking Status: Never smoker Alcohol Intake: never Substance Use Type: denies use Occupational Status: unemployed Housing: house Household Members: family - Psychiatric History Pschychiatric History:: Denies:: Anxiety, Depression Family Hx:: No significant family history ROS Obtained: Yes Systems reviewed as appropriate & no additional complaints - Constitutional Constitutional: Reports system reviewed and no additional complaints, except as docu, Denies fever(s)
[2021-08-25 19:25] VITALS: BP 122/69; PULSE 79; RESP 18; TEMP 37.2; O2SAT 98
== END 2021-08-25 19:28 | disposition home or self-care (01) ==
PROVIDERS: Emergency Provider Nurse Practitioner Family; PCP Obstetrics & Gynecology
DX: H66.003 Acute suppurative otitis media without spontaneous rupture of ear drum, bilateral (principal)
CPT/HCPCS: 99202; G0463

== ENCOUNTER 2022-06-14 10:29 | Emergency (ER) | payer OTHER, SELFPAY ==
--- NOTE | 2022-06-14 12:48 | EXP.UTC ---
Discharge Plan Disposition Patient Disposition: Left Without Being Seen Clinical Impressions Clinical Impression: Patient left before triage assessment Discharge ED Provider: Aneudy Crook [facility] General Stated complaint: bilateral ear pain Time Seen by Provider: 06/14/22 12:48 Related Data Previous Rx's Medication Instructions Recorded fluticasone propionate 50 1 spr NS DAILY #1 ea 05/04/21 mcg/actuation nasal spray,suspension amoxicillin 400 mg/5 mL oral 500 mg (6.25 mL) PO BID 10 days 08/25/21 suspension #150 mL Allergies Allergy/AdvReac Type Severity Reaction Status Date / Time No Known Allergies Allergy Verified 11/14/18 04:57 PFSH PFS Social History Smoking Status: Never smoker alcohol intake: never substance use type: denies use current occupational status: unemployed Travel in the last 8 weeks: None household members: family housing: house
[2022-06-14 12:56] VITALS: BP 0/0; PULSE 0; RESP 0; TEMP -17.7; TEMP 0
== END 2022-06-14 12:56 | disposition left against medical advice (07) ==
PROVIDERS: Emergency Provider Nurse Practitioner Family
DX: Z53.21 Procedure and treatment not carried out due to patient leaving prior to being seen by health care provider (principal)

== ENCOUNTER 2023-10-17 12:54 | Emergency (ER) | payer OTHER, SELFPAY ==
[2023-10-17 13:05] VITALS: BP 118/71; PULSE 88; RESP 18; TEMP 36.7; O2SAT 98; BMI 37.0
--- NOTE | 2023-10-17 13:05 | EXP.UTC ---
Discharge Plan Disposition Patient Disposition: Home, Self-Care Condition: Good Prescriptions Prescriptions: New doxycycline hyclate 100 mg tablet 100 mg PO BID 10 Days Qty: 20 0RF prednisone 20 mg tablet 20 mg PO BID Qty: 10 0RF pseudoephedrine HCl [Sudafed 12 Hour] 120 mg tablet extended release 120 mg PO BID PRN (Reason: nasal congestion) Qty: 20 0RF Referrals Follow up/Referrals: Provider,Referral, MD [Primary Care Provider] - See instructions Clinical Impressions Clinical Impression: Sinusitis Instructions Patient Instructions: DI for Sinusitis Discharge ED [place] Paz Aguir[place] [facility] [place] General Stated complaint: Sinus/Jaw Pain Time Seen by Provider: 10/17/23 13:23 History of Present Illness Provider Complaint: Pain in left ear, left jaw, left side of face X 3 days. No fever. Pressure behind left eye. Dizzy when she leans forward and pressure increased. Onset (ago): day(s) (3) Location: face Relieving factors: none Exacerbating factors: none Associated symptoms: denies other symptoms Treatments prior to arrival: none Related Data Previous Rx's Medication Instructions Recorded doxycycline hyclate 100 mg tablet 100 mg PO BID 10 days #20 tabs 10/17/23 prednisone 20 mg tablet 20 mg PO BID #10 tabs 10/17/23 pseudoephedrine HCl 120 mg 120 mg PO BID PRN nasal congestion 10/17/23 tablet,extended release (Sudafed #20 tabs 12 Hour) Allergies Allergy/AdvReac Type Severity Reaction Status Date / Time No Known Allergies Allergy Verified 11/14/18 04:57 [facility] Disclaimer: The information contained in this section may have been updated after the patient was seen, as this information can be updated by other users. Surgical History (Updated 10/17/23 @ 13:12 by Yany Lizama RN) History of tubal ligation History of section Social History Smoking Status: Never smoker alcohol intake: never substance use type: denies use current occupational status: unemployed Travel in the last 8 weeks: None household members: family housing: house ROS Obtained: Yes All systems reviewed & no additional complaints except as documented ENT Ears, Nose, Mouth, and Throat: Reports otalgia, Reports sinus pain and Reports sinus pressure Physical Exam General General appearance: alert and in no apparent distress Head Head exam: atraumatic, normocephalic and normal inspection Eye Eye exam: Present normal appearance, PERRL and EOMI ENT ENT exam: Present normal exam, normal oropharynx, mucous membranes moist, TM's normal bilaterally and normal external ear exam Expanded ENT Exam Nose exam: Present sinus tenderness (left maxillary) Neck Neck exam: Present normal inspection, full ROM and trachea midline; Absent meningismus or lymphadenopathy Chest Chest inspection: Present normal inspection and symmetric chest wall rise; Absent tenderness Respiratory Respiratory exam: Present normal lung sounds bilaterally; Absent respiratory distress Cardiovascular Cardiovascular exam: Present regular rate and normal rhythm; Absent JVD Abdominal Exam Abdominal exam: Present soft and normal bowel sounds; Absent distention, tenderness or guarding Extremities Exam Extremities exam: Present normal inspection, full ROM and normal capillary refill; Absent calf tenderness Back Exam Back exam: Present normal inspection; Absent tenderness Neurological Exam Neurological exam: Present alert and oriented X3 Psychiatric Psychiatric exam: Present normal affect and normal mood Skin Skin exam: Present warm, dry, intact and normal color Lymphatic Lymphatic Findings: no adenopathy Medical Decision Making Juancarlos Inquiry Pt receiving controlled substance: No
[2023-10-17 13:36] VITALS: BP 118/71; PULSE 88; RESP 18; TEMP 36.7; O2SAT 98
== END 2023-10-17 13:37 | disposition home or self-care (01) ==
PROVIDERS: Emergency Provider Physician Assistant
DX: J01.90 Acute sinusitis, unspecified (principal); H92.02 Otalgia, left ear; R68.84 Jaw pain; R42 Dizziness and giddiness; Z56.0 Unemployment, unspecified
CPT/HCPCS: 99212; 99214; G0463

== ENCOUNTER 2023-12-23 11:12 | Emergency (ER) | payer OTHER, SELFPAY ==
[2023-12-23 11:12] VITALS: BP 112/71; PULSE 110; RESP 18; TEMP 36.6; O2SAT 100; BMI 33.8
--- NOTE | 2023-12-23 12:49 | ED_ITS ---
Discharge Plan Disposition Patient Disposition: Home, Self-Care Condition: Good Prescriptions Prescriptions: New cefdinir 250 mg/5 mL suspension for reconstitution 300 mg PO Q12H 10 Days Qty: 120 0RF loratadine 10 mg tablet,disintegrating 10 mg PO DAILY Qty: 30 0RF Referrals Follow up/Referrals: Provider,Referral, MD [Primary Care Provider] - See instructions Activity Restrictions/Add. Instructions Additional Instructions/Restrictions: Follow up with PCP if symptoms persist or worsen. Clinical Impressions Clinical Impression: Bilateral acute otitis media Instructions Patient Instructions: Middle Ear Infection Discharge ED [place] [facility] [place] General Stated complaint: pain in both ears Mode of Arrival: Ambulatory Source of Information: Patient Limitations: No Limitations Time Seen by Provider: 12/23/23 12:38 Description of Symptoms (Recalled from Triage Doc. by RN): Pt's symptoms are bilateral ear pain/clogged. She feels dizzy at times, and hurting bubbles . HEENT Symptoms (Recalled from RN notes): Yes Resp Symptoms (Recalled from RN notes): No Skin Symptoms (Recalled from RN notes): No MS Symptoms (Recalled from RN notes): No Functional Status (Recalled from RN notes): n/a History of Present Illness Provider Complaint: Pt relates that she has had bilateral ear pain with bubble sensation in her ears and dizziness. She has not taken anything for her symptoms. Related Data Previous Rx's Medication Instructions Recorded cefdinir 250 mg/5 mL oral 300 mg (6 mL) PO Q12H 10 days #120 12/23/23 suspension mL loratadine 10 mg disintegrating 10 mg PO DAILY #30 tabs 12/23/23 tablet Allergies Allergy/AdvReac Type Severity Reaction Status Date / Time No Known Allergies Allergy Verified 12/23/23 12:14 Worker's Comp Is this a Worker's Comp case?: No [facility] Disclaimer: The information contained in this section may have been updated after the patient was seen, as this information can be updated by other users. Surgical History History of tubal ligation History of section Social History Smoking Status: Never smoker alcohol intake: never substance use type: denies use current occupational status: unemployed Travel in the last 8 weeks: None household members: family housing: house ROS Obtained: Yes All systems reviewed & no additional complaints except as documented Constitutional Constitutional: Reports system reviewed and no additional complaints, except as documented Eyes Eyes: Reports system reviewed and no additional complaints, except as documented ENT Ears, Nose, Mouth, and Throat: Reports system reviewed and no additional complaints, except as documented, Reports dizziness and Reports otalgia Cardiovascular Cardiovascular: Reports system reviewed and no additional complaints, except as documented Respiratory Respiratory: Reports system reviewed and no additional complaints, except as documented Gastrointestinal Gastrointestingal: Reports system reviewed and no additional complaints, except as documented Genitourinary Female Genitourinary: Reports system reviewed and no additional complaints, exc ept as documented Musculoskeletal Musculoskeletal: Reports system reviewed and no additional complaints, except as documented Integumentary/Breasts Skin/Breast: Reports system reviewed and no additional complaints, except as documented Neurologic Neurologic: Reports system reviewed and no additional complaints, except as documented and Reports dizziness Endocrine Endocrine: Reports system reviewed and no additional complaints, except as documented Hematologic/Lymphatic Henatologic/Lymphatic: Reports system reviewed and no additional complaints, except as documented Allergic/Immunologic Allergic/Immunologic: Reports system reviewed and no additional complaints, except as documented Physical Exam General General appearance: alert and in no apparent distress Head Head exam: atraumatic and normocephalic Eye Eye exam: Present normal appearance Expanded ENT Exam External ear exam: Present normal external inspection TM/Canal exam: Bilateral TM: erythema, bulging, effusion, loss of landmarks and canal discharge (clear) Nasal speculum exam: Bilateral: normal Mouth exam: Present normal external inspection Teeth exam: Present normal inspection Throat exam: Present normal inspection Neck Neck exam: Present normal inspection Chest Chest inspection: Present normal inspection and symmetric chest wall rise Respiratory Respiratory exam: Present normal lung sounds bilaterally Cardiovascular Cardiovascular exam: Present normal rhythm and tachycardia Abdominal Exam Abdominal exam: Present soft Extremities Exam Extremities exam: Present normal inspection Back Exam Back exam: Present normal inspection Neurological Exam Neurological exam: Present alert and oriented X3 Psychiatric Psychiatric exam: Present normal affect and normal mood Skin Skin exam: Present warm, dry and intact Lymphatic Lymphatic Findings: no adenopathy Medical Decision Making Juancarlos Inquiry Pt receiving controlled substance: No Juancarlos was queried for this patient: No Vital Signs: 12/23/23 11:12 Temperature 97.9 F Temperature Source Oral Pulse Rate [Right Radial] 110 H Respiratory Rate 18 Blood Pressure [Right Arm] 112/71 Blood Pressure Mean [Right Arm] 84 Blood Pressure Source [Right Arm] Automatic Cuff Blood Pressure Position [Right Arm] Sitting 02 Sat by Pulse Oximetry 100 Oxygen Delivery Method Room Air
[2023-12-23 13:06] VITALS: BP 112/71; PULSE 61; RESP 18; TEMP 36.6; O2SAT 100
== END 2023-12-23 13:05 | disposition home or self-care (01) ==
PROVIDERS: Emergency Provider Nurse Practitioner Family
DX: H66.93 Otitis media, unspecified, bilateral (principal); H92.03 Otalgia, bilateral; R42 Dizziness and giddiness
CPT/HCPCS: 99212; 99214; G0463

== ENCOUNTER 2024-01-07 13:48 | Emergency (ER) | payer OTHER, SELFPAY ==
[2024-01-07 14:10] VITALS: BP 128/78; PULSE 68; RESP 20; TEMP 36.8; O2SAT 99; BMI 34.2
--- NOTE | 2024-01-07 14:10 | EXP.UTC ---
Discharge Plan Disposition Patient Disposition: Home, Self-Care Condition: Good Prescriptions Prescriptions: No Action cefdinir 250 mg/5 mL suspension for reconstitution 300 mg PO Q12H 10 Days Qty: 120 0RF loratadine 10 mg tablet,disintegrating 10 mg PO DAILY Qty: 30 0RF Referrals Follow up/Referrals: Provider,Referral, [Primary Care Provider] - See instructions Activity Restrictions/Add. Instructions Additional Instructions/Restrictions: Drink plenty of fluids. Take tylenol for pain or fever. Take the medications as directed. Follow up with your regular doctor. GO TO THE ER FOR ANY WORSENING SYMPTOMS Clinical Impressions Clinical Impression: Amenorrhea, Fatigue Instructions Patient Instructions: DI for Fatigue Discharge ED Provider: Aneudy Crook [facility] General Stated complaint: blood work Time Seen by Provider: 01/07/24 14:10 Related Data Previous Rx's Medication Instructions Recorded cefdinir 250 mg/5 mL oral 300 mg (6 mL) PO Q12H 10 days #120 12/23/23 suspension mL loratadine 10 mg disintegrating 10 mg PO DAILY #30 tabs 12/23/23 tablet Allergies Allergy/AdvReac Type Severity Reaction Status Date / Time No Known Allergies Allergy Verified 12/23/23 12:14 [facility] Disclaimer: The information contained in this section may have been updated after the patient was seen, as this information can be updated by other users. Surgical History History of tubal ligation History of section Social History Smoking Status: Never smoker alcohol intake: never substance use type: denies use current occupational status: unemployed Travel in the last 8 weeks: None household members: family housing: house ROS Obtained: Yes All systems reviewed & no additional complaints except as documented Constitutional Constitutional: Denies chills and Denies fever(s) Eyes Eyes: Denies eye discharge ENT Ears, Nose, Mouth, and Throat: Denies dizziness, Denies otalgia and Denies sore throat Cardiovascular Cardiovascular: Denies chest pain Respiratory Respiratory: Denies shortness of breath, Denies chest congestion, Denies cough, Denies stridor and Denies wheezing Gastrointestinal Gastrointestingal: Denies nausea or vomiting Musculoskeletal Musculoskeletal: Reports system reviewed and no additional complaints, except as documented and Denies arthralgias Integumentary/Breasts Skin/Breast: Denies rash Neurologic Neurologic: Denies dizziness and Denies paresthesias Allergic/Immunologic Allergic/Immunologic: Denies wheezing Physical Exam General General appearance: alert and in no apparent distress Head Head exam: atraumatic, normocephalic and normal inspection Eye Eye exam: Present normal appearance, PERRL and EOMI ENT ENT exam: Present normal exam, normal oropharynx, mucous membranes moist, TM's normal bilaterally and normal external ear exam Neck Neck exam: Present normal inspection, full ROM and trachea midline; Absent meningismus or lymphadenopathy Chest Chest inspection: Present normal inspection and symmetric chest wall rise; Absent tenderness Respiratory Respiratory exam: Present normal lung sounds bilaterally; Absent respiratory distress Cardiovascular Cardiovascular exam: Present regular rate and normal rhythm; Absent JVD Abdominal Exam Abdominal exam: Present soft and normal bowel sounds; Absent distention, tenderness or guarding Extremities Exam Extremities exam: Present normal inspection, full ROM and normal capillary refill; Absent calf tenderness Back Exam Back exam: Present normal inspection; Absent tenderness Neurological Exam Neurological exam: Present alert and oriented X3 Psychiatric Psychiatric exam: Present normal affect and normal mood Skin Skin exam: Present warm, dry, intact and normal color Lymphatic Lymphatic Findings: no adenopathy Medical Decision Making Medical Records Medical records reviewed: No I reviewed the patient's medical records. Juancarlos Inquiry Pt receiving controlled substance: No Lab Data Lab results reviewed: Yes I reviewed the patient's lab results. 01/07/24 14:55 01/07/24 14:55
[2024-01-07 15:12] LABS: Chloride 107 mmol/L (98-107); Sodium 140 mmol/L (136-145)
[2024-01-07 15:13] LABS: Potassium 4.2 mmoL/L (3.5-5.1)
[2024-01-07 15:15] LABS: Alanine Aminotransferase 28 U/L (12-78); Albumin Level 4.6 g/dl (3.5-5.0); Albumin/Globulin Ratio 1.1 (1.1-1.8); Alkaline Phosphatase 90 U/L (38-126); Anion Gap 12.2 mEq/L (5-15); Aspartate Amino Transferase 35 U/L (14-36); Bilirubin,Total 0.2 mg/dl (0.2-1.3); Blood Urea Nitrogen 12 mg/dl (7-17); Calcium 9.5 mg/dl (8.4-10.2); Carbon Dioxide 25 mmol/L (22.0-30.0); Creatinine Clearance Estimated 166 mL/min (50-200); Estimated Glomerular Filt Rate 86 ml/min (>60); GFR (African American) 104 ML/MIN (>60); Globulin 4.1 g/dL (1.3-3.2); Glucose 95 mg/dl (74-100); Total Protein,Serum 8.7 g/dl (6.3-8.2)
[2024-01-07 15:19] LABS: Hemoglobin 12.8 g/dL (12.2-16.2); Red Blood Count 4.34 M/mm3 (4.20-5.40); White Blood Count 9.6 K/mm3 (4.8-10.8)
[2024-01-07 15:20] LABS: Basophils # 0.1 K/mm3 (0-0.2); Basophils % 0.5 % (0.1-2.0); Eosinophils # 0.1 K/mm3 (0.0-0.4); Eosinophils % 1.1 % (0.1-12.0); Lymphocytes # 2.5 K/mm3 (0.7-4.5); Lymphocytes % 26.1 % (10-50); Mean Corpuscular HGB Conc 32.8 g/dL (31.8-35.4); Mean Corpuscular Hemoglobin 29.5 pg (27.0-31.2); Mean Corpuscular Volume 89.9 fl (81-99); Mean Platelet Volume 7.8 fl (7.4-10.4); Monocytes # 0.4 K/mm3 (0.1-1.0); Monocytes % 3.6 % (1.7-9.3); Neutrophils # 6.6 K/mm3 (1.8-7.8); Neutrophils % 68.8 % (37.0-80.0); Platelet Count 323 K/mm3 (142-424); Red Cell Distribution Width 15.2 % (11.5-17.5)
[2024-01-07 15:40] LABS: HCG Qualitative, Serum Negative (Negative)
[2024-01-07 16:01] VITALS: BP 128/78; PULSE 68; RESP 20; TEMP 36.8; O2SAT 99
== END 2024-01-07 16:05 | disposition home or self-care (01) ==
PROVIDERS: Emergency Provider Nurse Practitioner Family
DX: N91.2 Amenorrhea, unspecified (principal); R53.83 Other fatigue
CPT/HCPCS: 80053; 84703; 85025; 99212; 99213; G0463

== ENCOUNTER 2024-03-02 13:35 | Outpatient (CLI) | payer OTHER, SELFPAY ==
[2024-03-02 19:32] LABS: Albumin Level 4.3 g/dl (3.5-5.0); Chloride 106 mmol/L (98-107); Sodium 137 mmol/L (136-145)
[2024-03-02 19:33] LABS: Potassium 4.7 mmoL/L (3.5-5.1)
[2024-03-02 19:35] LABS: Alanine Aminotransferase 23 U/L (12-78); Albumin/Globulin Ratio 1.2 (1.1-1.8); Alkaline Phosphatase 108 U/L (38-126); Anion Gap 9.7 mEq/L (5-15); Aspartate Amino Transferase 29 U/L (14-36); Bilirubin,Total 0.5 mg/dl (0.2-1.3); Blood Urea Nitrogen 14 mg/dl (7-17); Carbon Dioxide 26 mmol/L (22.0-30.0); Cholesterol 181 mg/dl (140-200); Estimated Glomerular Filt Rate 86 ml/min (>60); GFR (African American) 104 ML/MIN (>60); Globulin 3.5 g/dL (1.3-3.2); Glucose 76 mg/dl (74-100); Total Protein,Serum 7.8 g/dl (6.3-8.2); Triglycerides 144 mg/dl (30-150); VLDL Cholesterol 29 mg/dL (0-40)
[2024-03-02 19:36] LABS: Chol/HDL Ratio 4.5 (1-3.5); HDL Cholesterol 40 mg/dl (40-60)
[2024-03-02 19:46] LABS: Direct LDL Cholesterol 105.14 mg/dL (100-129)
== END 2024-03-02 23:59 | disposition home or self-care (01) ==
LOC: LAB.DROPOF 03-03 14:56
PROVIDERS: PCP Internal Medicine; Visit Provider Internal Medicine
DX: E78.5 Hyperlipidemia, unspecified (principal); E66.9 Obesity, unspecified; Z68.34 Body mass index [BMI] 34.0-34.9, adult
CPT/HCPCS: 80053; 80061; 84443

== ENCOUNTER 2024-07-06 11:57 | Outpatient (CLI) | payer OTHER, SELFPAY ==
[2024-07-06 13:57] LABS: Thyroid Stimulating Hormone 1.38 uIU/mL (0.465-4.68)
== END 2024-07-06 23:59 | disposition home or self-care (01) ==
LOC: LAB.DROPOF 11:57
PROVIDERS: PCP Internal Medicine; Visit Provider Internal Medicine
DX: R53.83 Other fatigue (principal); E66.9 Obesity, unspecified
CPT/HCPCS: 82533; 84443

== ENCOUNTER 2024-07-08 15:53 | Emergency (ER) | payer OTHER, SELFPAY ==
[2024-07-08 17:03] VITALS: BP 118/66; PULSE 94; RESP 18; TEMP 37.2; O2SAT 98; BMI 34.1
--- NOTE | 2024-07-08 17:05 | ED_ITS ---
Discharge Plan Disposition Patient Disposition: Home, Self-Care Condition: Good Prescriptions Prescriptions: New ondansetron 4 mg Tablet,Disintegrating 4 mg PO Q8H PRN (Reason: Nausea) Qty: 12 0RF Referrals Follow up/Referrals: Ever Read MD [Primary Care Provider] - See instructions Activity Restrictions/Add. Instructions Additional Instructions/Restrictions: Drink plenty of fluids. Take tylenol or ibuprofen for pain or fever. Take the medications as directed. Follow up with your regular doctor. GO TO THE ER FOR ANY WORSENING SYMPTOMS Clinical Impressions Clinical Impression: Gastroenteritis Instructions Patient Instructions: Viral Gastroenteritis, DI for Viral Gastroenteritis -- Adult, Ondansetron Print Language Print Language: Setswana Discharge ED Provider: Aneudy Crook [facility] General Stated complaint: ear ache, vomitng, diarrhea, MOY Mode of Arrival: Ambulatory Source of Information: Patient Time Seen by Provider: 07/08/24 17:05 Description of Symptoms (Recalled from Triage Doc. by RN): MOY, N/V/D, STOMACH ACHE, EARS HURT, DIZZY HEENT Symptoms (Recalled from RN notes): Yes Resp Symptoms (Recalled from RN notes): Yes Skin Symptoms (Recalled from RN notes): No MS Symptoms (Recalled from RN notes): No Functional Status (Recalled from RN notes): WNL Related Data Previous Rx's ?Medication ?Instructions ?Recorded ondansetron 4 mg disintegrating 4 mg PO Q8H PRN Nausea #12 tabs 07/08/24 tablet Allergies Allergy/AdvReac Type Severity Reaction Status Date / Time No Known Allergies Allergy Verified 07/06/24 10:59 Worker's Comp Is this a Worker's Comp case?: No [facility] Disclaimer: The information contained in this section may have been updated after the patient was seen, as this information can be updated by other users. Surgical History History of tubal ligation History of section Social History Smoking Status: Never smoker alcohol intake: never substance use type: denies use current occupational status: unemployed Travel in the last 8 weeks: None household members: family housing: house Have you lived/traveled outside [place] in past 30 days?: No Contact w/someone who lives/traveled outside [place] past 30 days?: No Exposure to someone with infectious disease in past 14 days?: No Do you have a fever (greater than 100.4 F or 38 C)?: No Have you tested positive for COVID-19: No Exposed to someone with COVID-19 in past 14 days?: No Do you have a sore throat?: No Do you have a cough?: No Do you have any weakness?: No Do you have any diarrhea?: Yes Are you experiencing any unusual bleeding?: No Do you have any muscle aches/pain?: No Do you have any abdominal pain?: Yes Are you experiencing loss of taste or smell?: No ROS Obtained: Yes All systems reviewed & no additional complaints except as documented Constitutional Constitutional: Denies chills, Denies fever(s) and Reports poor appetite ENT Ears, Nose, Mouth, and Throat: Denies dizziness and Denies sore throat Cardiovascular Cardiovascular: Denies dyspnea Respiratory Respiratory: Denies chest congestion, Denies cough and Denies dyspnea Gastrointestinal Gastrointestingal: Reports as per HPI; Denies abdominal pain Genitourinary Female Genitourinary: Denies difficulty voiding, Denies dysuria, Denies hematuria, Denies urinary frequency, Denies urinary incontinence, Denies urinary hesitancy and Denies urinary urgency Musculoskeletal Musculoskeletal: Denies arthralgias Integumentary/Breasts Skin/Breast: Denies rash Neurologic Neurologic: Denies dizziness Physical Exam General General appearance: alert and in no apparent distress Head Head exam: atraumatic and normocephalic Eye Eye exam: Present normal appearance, PERRL and EOMI ENT ENT exam: Present normal exam, normal oropharynx, mucous membranes moist, TM's normal bilaterally and normal external ear exam Neck Neck exam: Present normal inspection, full ROM and trachea midline; Absent tenderness, meningismus or lymphadenopathy Chest Chest inspection: Present normal inspection and symmetric chest wall rise; Absent tenderness, rash or abscess Respiratory Respiratory exam: Present normal lung sounds bilaterally; Absent respiratory distress, wheezes or stridor Cardiovascular Cardiovascular exam: Present regular rate and normal rhythm; Absent irregular rhythm, systolic murmur, diastolic murmur or JVD Abdominal Exam Abdominal exam: Present soft and hyperactive bowel sounds; Absent distention, tenderness, guarding, rebound, rigidity, psoas sign, obturator sign, heel tap sign, Lawrence's sign, Rovsing's sign or tenderness at McBurney's Point Extremities Exam Extremities exam: Present normal inspection and full ROM; Absent tenderness Back Exam Back exam: Present normal inspection and full ROM; Absent tenderness, CVA tenderness (R) or CVA tenderness (L) Neurological Exam Neurological exam: Present alert, oriented X3 and CN II-XII intact Psychiatric Psychiatric exam: Present normal affect and normal mood Skin Skin exam: Present warm, dry, intact and normal color Lymphatic Lymphatic Findings: no adenopathy Medical Decision Making Medical Records Medical records reviewed: No I reviewed the patient's medical records. Screening: Per USPSTF and CDC recommendations, given the prevalence of disease in our region, it is our hospital?s policy to screen for HIV and viral Hepatitis for all patients aged 18 and over and those with ongoing risk factors. Juancarlos Inquiry Pt receiving controlled substance: No Vital Signs: 07/08/24 17:03 Temperature 98.9 F Temperature Source Oral Pulse Rate [Left Radial] 94 H Respiratory Rate 18 Blood Pressure [Left Arm] 118/66 Blood Pressure Mean [Left Arm] 83 02 Sat by Pulse Oximetry 98
[2024-07-08 17:13] VITALS: BP 118/66; PULSE 94; RESP 18; TEMP 37.2
== END 2024-07-08 17:16 | disposition home or self-care (01) ==
PROVIDERS: Emergency Provider Nurse Practitioner Family; PCP Internal Medicine
DX: K52.9 Noninfective gastroenteritis and colitis, unspecified (principal)
CPT/HCPCS: 99213; G0381